=== PATIENT | female | born 1945 | race Native Hawaiian/Other Pacific Islander ===

== ENCOUNTER 2016-07-15 08:00 | Outpatient (CLI) | payer OTHER ==
[~2016-07-15 08:00] MED LIST: CIPRO500 MG PO; COLACE50 MG PO; DEXILANT30 MG PO; DEXL60CA4 PO; LIPITOR20 MG PO; NITR100C56 PO; STOOL SOFTENER1 TA2 OR; WARF5TAB6 PO
[2016-07-15 09:14] LABS: PLATELET COUNT 334 K/uL (152-353)
[2016-07-15 09:32] LABS: POTASSIUM 4.1 mmol/L (3.6-5.2); SODIUM 138 mmol/L (136-145)
== END 2016-07-15 19:06 | disposition home or self-care (01) ==
LOC: LABW 08:00
PROVIDERS: Internal Medicine
DX: E78.4 Other hyperlipidemia (principal); R82.99 Other abnormal findings in urine
CPT/HCPCS: 36415; 80053; 80061; 81000; 84439; 84443; 85027; 87077; 87086; 87088; 87186

== ENCOUNTER 2016-12-22 08:01 | Outpatient (CLI) | payer OTHER ==
[2016-12-22 09:25] LABS: PLATELET COUNT 251 K/uL (152-353)
[2016-12-22 09:55] LABS: POTASSIUM 3.8 mmol/L (3.6-5.2); SODIUM 143 mmol/L (136-145)
== END 2016-12-22 19:34 | disposition home or self-care (01) ==
LOC: LABW 08:01 → RAD 08:01 → LABW 19:34
PROVIDERS: Internal Medicine
DX: E78.4 Other hyperlipidemia (principal); D64.89 Other specified anemias; M85.89 Other specified disorders of bone density and structure, multiple sites
CPT/HCPCS: 36415; 80053; 80061; 81000; 82043; 82570; 84443; 85027

== ENCOUNTER 2016-12-23 09:02 | Outpatient (CLI) | payer OTHER | END 2016-12-23 19:11 | disposition home or self-care (01) | LOC: LAB 09:02 | DX: M85.88 Other specified disorders of bone density and structure, other site (principal) | CPT/HCPCS: 82306 ==

== ENCOUNTER 2018-01-18 08:29 | Outpatient (CLI) | payer OTHER ==
[2018-01-18 09:04] LABS: PLATELET COUNT 310 K/uL (152-353)
== END 2018-01-18 19:57 | disposition home or self-care (01) ==
LOC: LABW 08:29
PROVIDERS: Internal Medicine
DX: Z00.00 Encounter for general adult medical examination without abnormal findings (principal); D64.9 Anemia, unspecified; Z79.899 Other long term (current) drug therapy; E78.4 Other hyperlipidemia
CPT/HCPCS: 36415; 80053; 80061; 81000; 84439; 84443; 85027

== ENCOUNTER 2018-02-17 09:57 | Outpatient (CLI) | payer OTHER | END 2018-02-17 19:44 | disposition home or self-care (01) | LOC: MAMMO 09:57 | DX: Z12.31 Encounter for screening mammogram for malignant neoplasm of breast (principal); Z13.6 Encounter for screening for cardiovascular disorders ==

== ENCOUNTER 2018-04-20 16:12 | Outpatient (CLI) | payer OTHER | END 2018-04-20 19:59 | disposition home or self-care (01) | LOC: LAB 16:12 | DX: R30.0 Dysuria (principal) | CPT/HCPCS: 87077; 87086; 87088; 87186 ==

== ENCOUNTER 2019-02-23 08:25 | Outpatient (CLI) | payer OTHER ==
[2019-02-23 08:46] LABS: PLATELET COUNT 309 K/uL (152-353)
[2019-02-23 08:57] LABS: POTASSIUM 4.5 mmol/L (3.6-5.2)
== END 2019-02-23 19:44 | disposition home or self-care (01) ==
LOC: LABW 08:25
PROVIDERS: Internal Medicine
DX: D64.89 Other specified anemias (principal); E78.49 Other hyperlipidemia
CPT/HCPCS: 36415; 80053; 80061; 81000; 85027

== ENCOUNTER 2019-03-09 08:40 | Outpatient (CLI) | payer OTHER | END 2019-03-09 23:21 | disposition home or self-care (01) | LOC: MAMMO 08:40 | DX: Z12.31 Encounter for screening mammogram for malignant neoplasm of breast (principal) ==

== ENCOUNTER 2019-04-24 11:21 | Outpatient (CLI) | payer OTHER | END 2019-04-24 21:08 | disposition home or self-care (01) | LOC: RAD 11:21 | DX: J40 Bronchitis, not specified as acute or chronic (principal) ==

== ENCOUNTER 2019-04-27 09:23 | Outpatient (CLI) | payer OTHER | END 2019-04-27 19:12 | disposition home or self-care (01) | LOC: RAD 09:23 | DX: Z13.820 Encounter for screening for osteoporosis (principal); N95.8 Other specified menopausal and perimenopausal disorders ==

== ENCOUNTER 2019-10-19 08:44 | Outpatient (CLI) | payer OTHER ==
[2019-10-19 10:08] LABS: PLATELET COUNT 268 K/uL (152-353)
[2019-10-19 10:38] LABS: POTASSIUM 4.1 mmol/L (3.6-5.2)
== END 2019-10-19 19:00 | disposition home or self-care (01) ==
LOC: LABW 08:44 → RESP 08:44 → LABW 19:00
PROVIDERS: Internal Medicine
DX: I10 Essential (primary) hypertension (principal)
CPT/HCPCS: 80053; 80061; 81000; 84439; 84443; 85027

== ENCOUNTER 2020-03-13 15:52 | Outpatient (CLI) | payer OTHER | END 2020-03-13 23:21 | disposition home or self-care (01) | LOC: LAB 15:52 | DX: N39.0 Urinary tract infection, site not specified (principal) | CPT/HCPCS: 87086; 87088 ==

== ENCOUNTER 2020-08-13 12:17 | Outpatient (CLI) | payer OTHER | END 2020-08-13 19:22 | disposition home or self-care (01) | LOC: LAB 12:17 | PROVIDERS: ATTEND Internal Medicine | DX: N39.0 Urinary tract infection, site not specified (principal) | CPT/HCPCS: 81002; 87086; 87088 ==

== ENCOUNTER 2020-09-02 13:47 | Outpatient (CLI) | payer OTHER ==
[2020-09-02 14:03] LABS: PLATELET COUNT 264 K/uL (152-353)
[2020-09-02 14:19] LABS: POTASSIUM 4.4 mmol/L (3.6-5.2)
== END 2020-09-02 21:39 | disposition home or self-care (01) ==
LOC: LAB 13:47
PROVIDERS: ATTEND Internal Medicine
DX: Z00.00 Encounter for general adult medical examination without abnormal findings (principal); I10 Essential (primary) hypertension; Z13.820 Encounter for screening for osteoporosis; E55.9 Vitamin D deficiency, unspecified
CPT/HCPCS: 80053; 80061; 81000; 82306; 84439; 84443; 85027

== ENCOUNTER 2020-09-18 09:24 | Outpatient (CLI) | payer OTHER | END 2020-09-18 21:31 | disposition home or self-care (01) | LOC: MAMMO 09:24 | PROVIDERS: ATTEND Internal Medicine | DX: Z12.31 Encounter for screening mammogram for malignant neoplasm of breast (principal) ==

== ENCOUNTER 2021-03-17 08:47 | Outpatient (CLI) | payer OTHER | END 2021-03-17 19:30 | disposition home or self-care (01) | LOC: US 08:47 | PROVIDERS: ATTEND Internal Medicine | DX: R10.2 Pelvic and perineal pain (principal) ==

== ENCOUNTER 2022-01-14 09:16 | Outpatient (CLI) | payer OTHER ==
[2022-01-14 09:36] LABS: PLATELET COUNT 280 K/uL (152-353)
[2022-01-14 09:57] LABS: POTASSIUM 4.1 mmol/L (3.6-5.2)
== END 2022-01-14 19:21 | disposition home or self-care (01) ==
LOC: RAD 09:16 → US 09:16
PROVIDERS: ATTEND Internal Medicine
DX: R10.11 Right upper quadrant pain (principal)
CPT/HCPCS: 80053; 81002; 82150; 83690; 85027